=== PATIENT | male | born 1960 | race Caucasian/White ===

== ENCOUNTER 2024-08-16 00:32 | Inpatient (IN) | payer MEDICARE ==
[~2024-08-16] VITALS: Ht 177.8 cm; Wt 65.8 kg
[2024-08-16] MEDS ORDERED: ACETAMINOPHEN 325 MG TABLET PO PRN (02:30)
[2024-08-16] MEDS ORDERED: LORAZEPAM 0.5 MG TABLET PO PRN ×2 (02:30)
[2024-08-16] MEDS ORDERED: MAGNESIUM HYDROXIDE 30 ML UDC PO PRN (02:30)
[2024-08-16] MEDS ORDERED: MAG HYDROX/AL HYDROX/SIMETH 30 ML UDC PO PRN (02:30)
[2024-08-16] MEDS ORDERED: TEMAZEPAM 7.5 MG CAPSULE PO PRN ×2 (02:30)
[2024-08-16 02:58] VITALS: BP 129/75; TEMP 98; O2SAT 98
[2024-08-16 02:59] VITALS: BP 113/76; TEMP 97.9; O2SAT 99
[2024-08-16] MEDS: BLOOD SUGAR DIAGNOSTIC 1 EACH STRIP IN ONE (03:40)
[2024-08-16] MEDS ORDERED: OLAN10TA3 PO (04:04)
[2024-08-16] MEDS ORDERED: LAMO25TA10 PO (04:04)
[2024-08-16 08:00] VITALS: BP 124/87; TEMP 97.8; O2SAT 98
[2024-08-16] MEDS ORDERED: LORA-258 PO (08:42)
[2024-08-16] MEDS: OXCARBAZEPINE 150 MG TABLET PO SCH (12:12)
[2024-08-16] MEDS: OLANZAPINE 2.5 MG TABLET PO SCH (12:12)
[2024-08-16 16:00] VITALS: BP 107/65; TEMP 98; O2SAT 100
[2024-08-16 20:08] VITALS: BP 101/74; TEMP 99; O2SAT 97
[2024-08-17 07:30] VITALS: BP 140/96; TEMP 98; O2SAT 99
[2024-08-17 07:52] LABS: ALBUMIN 3.1 g/dL (3.4-5.0); BILIRUBIN,TOTAL 0.4 mg/dL (0.2-1.0); CREATININE 1.2 mg/dL (0.6-1.3); POTASSIUM 4.3 mmol/L (3.5-5.1); TOTAL PROTEIN, SERUM 6.4 g/dL (6.4-8.2)
[2024-08-17 07:55] LABS: CREATININE 1.2 mg/dL (0.6-1.3)
[2024-08-17 07:57] LABS: CHOLESTEROL 196 mg/dL (<200); HDL CHOLESTEROL 61 mg/dL (40-60); LDL 108 mg/dL (0-99); TRIGLYCERIDES 125 mg/dL (30-150)
[2024-08-17] MEDS: OXCARBAZEPINE 150 MG TABLET PO SCH (14:06)
[2024-08-17 16:00] VITALS: BP 130/90; TEMP 98.1; O2SAT 100
[2024-08-17 20:30] VITALS: BP 115/73; TEMP 98; O2SAT 98
[2024-08-17 23:18] VITALS: BP 115/73; TEMP 98; O2SAT 98
[2024-08-18 08:38] VITALS: BP 129/86; TEMP 97.9; O2SAT 98
[2024-08-18 16:00] VITALS: BP 118/92; TEMP 97.7; O2SAT 97
[2024-08-18 20:39] VITALS: BP 115/93; TEMP 98.1; O2SAT 96
[2024-08-19 08:00] VITALS: BP 146/94; TEMP 98.7; O2SAT 99
[2024-08-19 16:00] VITALS: BP 135/90; TEMP 97.8; O2SAT 99
[2024-08-19 20:00] VITALS: BP 114/89; TEMP 97.8; O2SAT 98
[2024-08-20 08:00] VITALS: BP 152/99; TEMP 97.8; O2SAT 98
[2024-08-20 16:13] VITALS: BP 140/94; TEMP 98.7; O2SAT 100
[2024-08-20 21:23] VITALS: BP 133/96; TEMP 98.6; O2SAT 100
[2024-08-21 08:00] VITALS: BP 137/94; TEMP 98; O2SAT 98
[2024-08-21 16:08] VITALS: BP 134/90; TEMP 98.1; O2SAT 96
[2024-08-21 20:03] VITALS: BP 145/95; TEMP 98.2; O2SAT 100
[2024-08-22 08:00] VITALS: BP 127/96; TEMP 97.9; O2SAT 100
[2024-08-22 16:00] VITALS: BP 115/91; TEMP 98.1; O2SAT 98
[2024-08-22 20:32] VITALS: BP 122/91; TEMP 98.4; O2SAT 100
[2024-08-22] MEDS: OLANZAPINE 5 MG TABLET PO SCH (21:30)
[2024-08-23 05:49] VITALS: BP 122/91; TEMP 98.4
[2024-08-23 08:00] VITALS: BP 140/100; TEMP 97.7; O2SAT 98
[2024-08-23] MEDS: OLANZAPINE 2.5 MG TABLET PO SCH (08:12)
[2024-08-23 16:00] VITALS: BP_SYST 116; BP_SYST 151; BP_DIAS 105; BP_DIAS 66; TEMP 97.5; TEMP 98.6; O2SAT 95; O2SAT 98
[2024-08-23 20:06] VITALS: BP_SYST 130; BP_SYST 135; BP_DIAS 70; BP_DIAS 84; TEMP 98; O2SAT 98
[2024-08-24 08:00] VITALS: BP 124/112; TEMP 98.1; O2SAT 97
[2024-08-24 16:00] VITALS: BP 141/107; TEMP 98; O2SAT 99
[2024-08-24 17:21] VITALS: BP 149/112
[2024-08-24] MEDS: hydrALAZINE HCL 25 MG TABLET PO SCH (17:25)
[2024-08-24 18:56] VITALS: BP 118/84
[2024-08-24 20:26] VITALS: BP 135/94; TEMP 98.1; O2SAT 100
[2024-08-25 08:00] VITALS: BP 132/93; TEMP 97.8; O2SAT 98
[2024-08-25] MEDS: OXCARBAZEPINE 150 MG TABLET PO SCH (08:20)
[2024-08-25 15:59] VITALS: BP 120/90; TEMP 97.8; O2SAT 100
[2024-08-25 20:12] VITALS: BP 132/95; TEMP 98.1; O2SAT 100
[2024-08-26 08:00] VITALS: BP 135/98; TEMP 98.1; O2SAT 97
[2024-08-26 20:00] VITALS: BP 117/68; TEMP 97.1; O2SAT 98
[2024-08-26 20:04] VITALS: BP 117/68; TEMP 97.1; O2SAT 98
[2024-08-27 08:00] VITALS: BP 128/88; TEMP 98; O2SAT 99
[2024-08-27 08:20] VITALS: BP 128/88
== END 2024-08-27 12:30 | DRG 885 ==
LOC: EDBD 00:37 → ER 00:37 → GPS 01:14
PROVIDERS: ADMIT Psychiatry & Neurology Psychosomatic Medicine; ATTEND Nurse Practitioner Acute Care
DX: F31.9 Bipolar disorder, unspecified (principal); E78.5 Hyperlipidemia, unspecified; F41.9 Anxiety disorder, unspecified; I10 Essential (primary) hypertension; Z73.6 Limitation of activities due to disability; F39 Unspecified mood [affective] disorder
CPT/HCPCS: 36415; 70450-TC; 80053-TC; 80061-TC; 82565-TC; 82962-TC; 87081-TC